=== PATIENT | male | born 1955 | race American Indian/Alaskan Native ===

== ENCOUNTER 2017-01-05 09:07 | Emergency (ER) | payer OTHER ==
[2017-01-05 09:18] VITALS: BP 155/90
--- NOTE | 2017-01-05 17:01 | Emergency Department Report ---
Entered by TERRY ZAVALA, acting as scribe for CAMACHO BLOCK PA. ED Lower Extremity HPI - General Chief Complaint: Extremity Injury, Lower Stated Complaint: SWOLLEN BIG TOE Time Seen by Provider: 01/05/17 12:09 Source: patient Mode of arrival: Ambulatory Limitations: No Limitations - History of Present Illness Initial Comments: 61 y/o male with no significant PMHx presents to the ED left hallux pain for 3 weeks, worsening last night. Rates pain a 3/10 in severity, which he describes as dull and throbbing in quality. Aggravated with walking, and alleviated with rest and soaking toe in hot water and Epsom salt. Patient states he fell out of bed 3 weeks ago, and subsequently jammed her left hallux. Denies numbness and tingling. NKDA. SHERIFF Complaint: foot injury (left halluz) Onset/Timin -: week(s) Injury: Foot: Left (hallux) Type of Injury: blunt Place: home Severity: mild Severity scale (0 -10): 3 Improves With: immobilization Worsens With: weight bearing, movement, palpation Context: fell out of bed (subsuquently jammed left hallux) Associated Symptoms: swelling, ambulatory. denies: snap/pop sensation, numbness , tingling Treatments Prior to Arrival: other (soaking left hallux with epsom salt) - Related Data Previous Rx's Medication Instructions Recorded Last Taken Type Clotrimazole/Betamethasone Dip 1 applicatio TP BID #1 tube 01/05/17 Unknown Rx [Lotrisone Cream] Cyclobenzaprine HCl [Flexeril 5 MG 5 mg PO QHS #20 tab 01/05/17 Unknown Rx TAB] Diclofenac Potassium 50 mg PO BID #20 tablet 01/05/17 Unknown Rx Allergies Allergy/AdvReac Type Severity Reaction Status Date / Time No Known Allergies Allergy Unverified 01/05/17 09:13 ED Review of Systems Comment: All other systems reviewed and negative Constitutional: denies: chills, diaphoresis, fever, malaise, weakness Eyes: denies: eye pain, eye discharge, vision change ENT: denies: ear pain, throat pain Respiratory: denies: cough, orthopnea, shortness of breath, SOB with exertion, SOB at rest, stridor, wheezing Cardiovascular: denies: chest pain, palpitations, dyspnea on exertion, orthopnea , edema, syncope Endocrine: no symptoms reported Gastrointestinal: denies: abdominal pain, nausea, vomiting, diarrhea Musculoskeletal: joint swelling (left hallux), myalgia (left hallux pain). denies: back pain, arthralgia Skin: denies: rash, lesions Neurological: denies: headache, weakness, numbness, paresthesias Hematological/Lymphatic: denies: easy bleeding, easy bruising ED Past Medical Hx - Past Medical History Previous Medical History?: No - Surgical History Past Surgical History?: No - Social History Smoking Status: Current Every Day Smoker Substance Use Type: Alcohol - Medications Home Medications: Home Medications Medication Instructions Recorded Confirmed Last Taken Type Clotrimazole/Betamethasone Dip 1 applicatio TP BID #1 tube 01/05/17 Unknown Rx [Lotrisone Cream] Cyclobenzaprine HCl [Flexeril 5 MG 5 mg PO QHS #20 tab 01/05/17 Unknown Rx TAB] Diclofenac Potassium 50 mg PO BID #20 tablet 01/05/17 Unknown Rx ED Physical Exam - General Limitations: No Limitations General appearance: alert, in no apparent distress - Head Head exam: Present: atraumatic, normocephalic - Eye Eye exam: Present: normal appearance, PERRL, EOMI Pupils: Present: normal accommodation - ENT ENT exam: Present: normal exam, mucous membranes moist, normal external ear exam - Neck Neck exam: Present: normal inspection, full ROM. Absent: tenderness, meningismus, lymphadenopathy - Respiratory Respiratory exam: Present: normal lung sounds bilaterally. Absent: respiratory distress, wheezes, rales, rhonchi, stridor, accessory muscle use, decreased breath sounds - Cardiovascular Cardiovascular Exam: Present: regular rate, normal rhythm, normal heart sounds. Absent: systolic murmur, diastolic murmur, rubs, gallop - GI/Abdominal GI/Abdominal exam: Present: soft, normal bowel sounds. Absent: distended - Extremities Exam Extremities exam: Present: full ROM, tenderness (mild dorsal left hallux tenderness), normal capillary refill, other (no fluid surrounding left hallux, left hallux joint intact). Absent: pedal edema, joint swelling, calf tenderness - Expanded Lower Extremity Exam Left Hip exam: Present: normal inspection, full ROM Upper Leg exam: Present: normal inspection, full ROM Knee exam: Present: normal inspection, full ROM Lower Leg exam: Present: normal inspection, full ROM Ankle exam: Present: normal inspection, full ROM. Absent: tenderness, swelling , abrasion, laceration, ecchymosis, deformity, crepidus, dislocation, erythema, anterior draw sign Foot/Toe exam: Present: full ROM, tenderness (mild dorsal left hallux tenderness ). Absent: swelling, abrasion, laceration, ecchymosis, deformity, crepidus, dislocation, erythema, amputation, puncture wound, foreign body, calcaneal tenderness, tenderness at base of 5th metatarsal, nail avulsion, subungual hematoma Neuro vascular tendon exam: Present: no vascular compromise. Absent: pulse deficit, abnormal cap refill, motor deficit, sensory deficit, tendon deficit, extremity cold to touch, pallor, abnormal 2-point discrimination, decreased fine /light touch, foot drop, peroneal nerve deficit, significant pain with passive ROM of distal joint Gait: Positive: observed and normal - Back Exam Back exam: Present: normal inspection, full ROM - Neurological Exam Neurological exam: Present: alert, oriented X3, normal gait - Psychiatric Psychiatric exam: Present: normal affect, normal mood - Skin Skin exam: Present: warm, dry, intact. Absent: rash ED Course Vital Signs 01/05/17 09:13 Temperature 97.9 F Pulse Rate 70 Respiratory 18 Rate Blood Pressure 155/90 O2 Sat by Pulse 100 Oximetry ED Lower Extremity MDM - Medical Decision Making 61 year-old male presents with left hallux pain for 3 weeks Discussed with patient to continue soaking left hallux in warm water and Epsom salt. Discussed the patient muscle relaxer medication and topical cream as prescribed. Discussed the patient to follow instructions as given and follow-up with orthopedic. Discuss her symptoms return or worsen to return to the ED Vital signs are normal patient is in no acute distress ED Disposition Clinical Impression: Toe injury, Strain of toe of left foot Disposition: DC-01 TO HOME OR SELFCARE Is pt being admited?: No Does the pt Need Aspirin: No Condition: Stable Instructions: Arthralgia (ED) Prescriptions: Cyclobenzaprine HCl [Flexeril 5 MG TAB] 5 mg PO QHS #20 tab Clotrimazole/Betamethasone Dip [Lotrisone Cream] 1 applicatio TP BID #1 tube Diclofenac Potassium 50 mg PO BID #20 tablet Referrals: PRIMARY CARE, [Primary Care Provider] - 3-5 Days [facility] [Outside] - 3-5 Days [facility] [Outside] - 3-5 Days Forms: Work/School Release Form(ED) Time of Disposition: 12:31 This documentation as recorded by the LUCAS simpson JASMINE,accurately reflects the service I personally performed and the decisions made by me,CAMACHO BLOCK, PA.
== END 2017-01-05 12:59 | disposition home or self-care (01) ==
LOC: ED 09:07
DX: S96.912A Strain of unspecified muscle and tendon at ankle and foot level, left foot, initial encounter (principal); F17.200 Nicotine dependence, unspecified, uncomplicated; W06.XXXA Fall from bed, initial encounter; Y93.89 Activity, other specified; Y99.8 Other external cause status; Y92.009 Unspecified place in unspecified non-institutional (private) residence as the place of occurrence of the external cause
CPT/HCPCS: 99282